=== PATIENT | male | born 1975 | race Caucasian/White ===

== ENCOUNTER 2017-09-26 21:25 | Inpatient (IN) | payer MEDICARE, BC, MEDICAID ==
[~2017-09-26] VITALS: Ht 180.3 cm; Wt 83.0 kg
--- NOTE | 2017-09-26 21:30 | NUR ---
KIM WYMAN AT BEDSIDE FOR EVAL.
[2017-09-26] MEDS ORDERED: LORAZEPAM INJ 2 MG/ML VIAL ONE ×3 (21:32→23:07)
--- NOTE | 2017-09-26 21:38 | NUR ---
SEIZURE PRECAUTIONS IN PLACE
--- NOTE | 2017-09-26 21:40 | NUR ---
KENIA Mireles [facility], FOR POSSIBEL SEIZURE X 1 MIN WITNESSED BY STAFF. ORAL TRAUMA NOTED. ABNORMAL GAG REFLEX NOTED. GCS 9. PT ALTERED AND UNRESPONSIVE. PT NOTED TO BE ACTIVELY SEIZING. SAMPLE DISPLAY PREPARER DEGRASSE BEDSIDE. PT PLACED ON ELECTRIC STOVE INSTALLER AND POX. PT SAFETY IN PLACE.
[2017-09-26 21:56] LABS: BASOPHILS % (AUTO) 0.1 % (0.0-2.0); EOSINOPHILS % (AUTO) 0.2 % (0.0-6.0); HEMATOCRIT 38 % (39-51); HEMOGLOBIN 12.4 g/dL (13.5-17.5); LYMPHOCYTES # (AUTO) 1.3 /CMM (0.8-4.8); LYMPHOCYTES % (AUTO) 6.7 % (20.0-44.0); MEAN CORPUSCULAR HEMOGLOBIN 27 PG (26.0-33.0); MEAN CORPUSCULAR HGB CONC 33 g/dl (31.0-36.0); MEAN CORPUSCULAR VOLUME 83 fL (80-96); MONOCYTES # (AUTO) 0.6 /CMM (0.1-1.30); MONOCYTES % (AUTO) 3.4 % (2.0-12.0); NEUTROPHILS # (AUTO) 16.9 /CMM (1.8-8.9); NEUTROPHILS % (AUTO) 89.6 % (43.0-81.0); PLATELET COUNT (AUTO) 518 /CMM (150-450); RED BLOOD CELL COUNT(AUTO) 4.56 MIL/uL (4.5-6.0); WHITE BLOOD COUNT (AUTO) 18.9 K/uL (4.3-11.0)
[2017-09-26] MEDS ORDERED: LORAZEPAM INJ 2 MG/ML VIAL IVP ONE (22:00)
[2017-09-26] MEDS ORDERED: ETOMIDATE 2 MG/ML VIAL IV ONE ×2 (22:00→23:00)
[2017-09-26] MEDS ORDERED: IV NS 0.9% 1,000 ML BAG IV ONE (22:00)
[2017-09-26] MEDS ORDERED: ROCURONIUM BROMIDE 50 MG/5 ML IV ONE (22:00)
--- NOTE | 2017-09-26 22:00 | NUR ---
MD MCGINNIS BEDSIDE. PER MD, PREPARE FOR INTUBATION
[2017-09-26 22:11] LABS: INR 1.11 (0.87-1.13)
--- NOTE | 2017-09-26 22:13 | NUR ---
CALLED NURSING SUP. FOR ICU BED
[2017-09-26] MEDS ORDERED: PROPOFOL 100 ML ONE (22:14)
[2017-09-26 22:15] LABS: ALANINE AMINOTRANSFERASE 20 U/L (12-78); ALBUMIN 3.2 g/dL (3.4-5.0); ALCOHOL, BLOOD < 3 mg/dL (0-0); ALKALINE PHOSPHATASE 61 U/L (46-116); ASPARTATE AMINOTRANSFERASE 25 U/L (15-37); BILIRUBIN,DIRECT 0.1 mg/dL (0.0-0.2); BILIRUBIN,TOTAL 0.3 mg/dL (0.2-1.0); CALCIUM, SERUM 6.6 mg/dL (8.5-10.1); CARBON DIOXIDE 14 mmol/L (21-32); CREATININE 1.1 mg/dL (0.6-1.3); GLUCOSE 201 mg/dL (74-106); UREA NITROGEN, BLOOD 5 mg/dL (7-18)
[2017-09-26 22:21] LABS: SODIUM SERUM 108 mmol/L (136-145)
--- NOTE | 2017-09-26 22:21 | NUR ---
PT INTUBATED WITH DR MCGINNIS AT BEDSIDE. ETT 7.5 AT 25CM AT LIP LINE. POSITIVE COLOR CHANGE ON CAP. BILATERAL CHEST RISE AND BREATH SOUNDS. PLACED PT ON MECHANICAL VENTILATION WITH THE FOLLOWING SETTINGS AC 18, 500, 100%, +5. VENT PLUGGED INTO RED OUTLET. ALARMS ARE ON AND AUDIBLE. BREAKS LOCKED. PT WAS SX'D SMALL AMOUNT OF BLOOD TINGED SECRETIONS. AMBU BAG AT HEAD OF BED. PT TOLERATING SETTINGS. PENDING X-RAY RESULTS FOR TUBE PLACEMENT AND PENDING ABG. WILL CONTINUE TO MONITOR.
[2017-09-26 22:22] LABS: CHLORIDE 78 mmol/L (98-107); POTASSIUM 2.8 mmol/L (3.5-5.1)
--- NOTE | 2017-09-26 22:22 | NUR ---
SUCCESSFUL INTUBATION AT 2221. MD MCGINNIS [facility]. RN ANGÉLICA, RN REAL, RT [facility]. VSS AFTER INTUBATION. NO COMPLICATION POST INTUBATION. ET 7.5, 25 AT LIPS, VENT SETTINGS AC18,500,100%, PEEP 5.
[2017-09-26] MEDS ORDERED: SENN25TA10 PO (22:27)
[2017-09-26] MEDS ORDERED: QUET400T PO (22:27)
[2017-09-26] MEDS ORDERED: DOXE10CA2 PO (22:27)
[2017-09-26] MEDS ORDERED: MIRT15TA7 PO (22:27)
[2017-09-26] MEDS ORDERED: CLON0.5T4 PO (22:27)
[2017-09-26] MEDS ORDERED: GABA300C PO (22:27)
[2017-09-26] MEDS ORDERED: SENN-167 PO (22:28)
[2017-09-26] MEDS ORDERED: DOCU100C36 PO (22:28)
[2017-09-26] MEDS ORDERED: PROPOFOL 10MG/ML 50ML 50 ML IV PRN (22:30)
[2017-09-26] MEDS ORDERED: LORAZEPAM INJ 2 MG/ML VIAL IV ONE ×2 (22:30→23:30)
[2017-09-26 22:31] VITALS: BP 117/70
[2017-09-26 22:49] LABS: TROPONIN I < 0.017 ng/mL (0.00-0.056)
--- NOTE | 2017-09-26 22:55 | NUR ---
PT TRANSFERRED TO CT. PT UNABLE TO TOLERATE PROCEDURE. PT WAS TRANSFERRED BACK TO ER AND PLACED ON PREVIOUS SETTINGS.
[2017-09-26] MEDS ORDERED: ROCURONIUM BROMIDE 100 MG/10 ML VIAL IV ONE (23:00)
[2017-09-26] MEDS ORDERED: POTASSIUM CHLORIDE 10 MEQ/50 ML PREMIXED IVPB FOR PERIPHERAL LINE IV ONE (23:00)
[2017-09-26] MEDS ORDERED: IV Sodium Chloride 3% 500 ML 500 ML IV ONE (23:11)
[2017-09-26] MEDS ORDERED: POTASSIUM CL. PREMIX PERIPHER. 50 ML ONE (23:36)
[2017-09-26 23:52] LABS: ABG BASE EXCESS -15.2 mmol/L; ABG OXYGEN SATURATION 99.4 % (92.0-98.5); ABG PCO2 58.3 mmHg (35.0-45.0); ABG PH 7.047 (7.350-7.450); ABG PO2 544.1 mmHg (75.0-100.0); AaDO2 110.6 mmHg; COHb 1.1 % (0.5-1.5); MetHb 0.6 % (0.0-1.5); O2Hb 97.7 % (94.0-97.0); PEEP,BG 5 cm H2O; SITE, ABG Right Radial; VT, ABG 500 mL
--- NOTE | 2017-09-26 23:53 | NUR ---
INCREASED RESP RATE TO 22 AND DECREASE FIO2 TO 40% POST ABG RESULTS PER DR MCGINNIS REQUEST. Addendum: 09/27/17 at 0044 by CHRISTINE SHOEMAKER RT Amended: Links added.
[2017-09-26] MEDS ORDERED: SODIUM BICARBONATE SYR 50 MEQ/50 ML DISP.SYRIN ONE (23:55)
[2017-09-27] VITALS (34 sets, daily range): BP systolic 88–119; BP diastolic 47–77
[2017-09-27] MEDS ORDERED: IV Sodium Chloride 3% 500 ML 500 ML IV ONE
[2017-09-27] MEDS ORDERED: LORAZEPAM INJ 20 MG in IV NS 0.9% 90 ML IV PRN ×2
[2017-09-27] MEDS ORDERED: PIPERACILLIN /TAZOBACTAM 4.5 G in IV D5W 50 ML IV ONE ×2
[2017-09-27] MEDS ORDERED: SODIUM BICARBONATE SYR 100 MEQ in IV NS 0.9% 1,000 ML IV PRN ×2
--- NOTE | 2017-09-27 00:02 | NUR ---
1100ML OF GASTRIC CONTENTS SUCTIONED OUT VIA NG TUBE DARK RED/BROWN IN COLLOR. MADE AWARE
--- NOTE | 2017-09-27 00:07 | NUR ---
SPUTUM SAMPLE INDUCTION PERFORMED. MAYKEL WINKLER AWARE.
[2017-09-27] MEDS ORDERED: LORAZEPAM INJ 2 MG/ML VIAL ONE ×3 (00:08→00:17)
--- NOTE | 2017-09-27 00:47 | NUR ---
RT NOTE LATE ENTRY: @ [address] @ 0030 PT TRANSFERRED BACK TO ER AND PLACED BACK ON MECHANICAL VENTILATION WITH PREVIOUS SETTINGS.
[2017-09-27] MEDS ORDERED: SODIUM BICARBONATE SYR 50 MEQ/50 ML DISP.SYRIN ONE (00:58)
[2017-09-27 01:05] LABS: ABG BASE EXCESS -0.6 mmol/L; ABG PCO2 27.7 mmHg (35.0-45.0); ABG PH 7.505 (7.350-7.450); ABG PO2 87.6 mmHg (75.0-100.0); AaDO2 165.7 mmHg; COHb 0.6 % (0.5-1.5); MetHb 0.5 % (0.0-1.5); O2Hb 95.9 % (94.0-97.0); PEEP,BG 5 cm H2O; SITE, ABG Right Radial; VT, ABG 500 mL
[2017-09-27 01:05] LABS: APPEARANCE,URINE CLEAR (CLEAR); BILIRUBIN,URINE NEGATIVE (NEGATIVE); BLOOD, URINE 2+ Ery/uL (NEGATIVE); COLOR,URINE YELLOW (YELLOW); KETONES,URINE TRACE (NEGATIVE); LEUKOCYTE ESTERASE ,URINE NEGATIVE (NEGATIVE); NITRITE, URINE NEGATIVE (NEGATIVE); PH,URINE 5.5 (5.0-8.0); PROTEIN,URINE NEGATIVE (NEGATIVE); UGLUCOSE NEGATIVE (NEGATIVE); UROBILINOGEN,URINE 0.2 EU/dL (0.2)
--- NOTE | 2017-09-27 01:05 | NUR ---
NEW VENT SETTINGS BY RT PER MD MCGINNIS AC20, 500, 40%, PEEP 5
[2017-09-27 01:21] LABS: RBC,URINE 0-2 /HPF (0-2); WBC,URINE 0-2 /HPF (0-3)
[2017-09-27 01:22] LABS: BACTERIA,URINE Few /HPF (None Seen); SQUAMOUS EPITHELIAL CELL,UR Few /HPF (None Seen)
[2017-09-27] MEDS ORDERED: POTASSIUM CL. PREMIX PERIPHER. 50 ML ONE (01:23)
[2017-09-27] MEDS ORDERED: SODIUM BICARBONATE SYR 50 MEQ/50 ML DISP.SYRIN IV ONE ×2 (01:30)
[2017-09-27] MEDS ORDERED: PIPERACILLIN /TAZOBACTAM 3.375 G VIAL IV ONE ×2 (01:31→03:48)
--- NOTE | 2017-09-27 01:33 | NUR ---
LATE ENTRY @ 0110 DECREASED RESP RATE POST ABG RESULTS PER DR MCGINNIS REQUEST. Addendum: 09/27/17 at 0134 by CHRISTINE SHOEMAKER RT Amended: Links added.
--- NOTE | 2017-09-27 02:25 | NUR ---
REPORT GIVEN TO CORD MAKERMAYKEL PALMER FOR MAINE.
[2017-09-27] MEDS ORDERED: POTASSIUM CL. PREMIX PERIPHER. 100 ML ONE (02:37)
--- NOTE | 2017-09-27 02:44 | NUR ---
POTASSIUM CHLORIDE BAG 3/4 STARTED AND INFUSING ON ADMISSION TO ICU
--- NOTE | 2017-09-27 03:05 | NUR ---
WEAPONS OFFICER: ADMITTED S/P ORAL INTUBATED PT. FOR DX OF STATUS EPILEPTICUS. VENT SETTINGS ORDERED AND TOLERATED WELL. SEDATED ON DIPRIVAN STARTED FROM ER AT 40MCG/KG/MIN, WITHDRAWS TO PAIN STIMULI. SR ON NAIL FEEDER. LT. NGT TUBE PATENT AND INTACT, VERIFIED PLACEMENT VIA AUSCULTATION AND X-RAY DONE FROM ER. F/C PATENT AND INTACT DRAINING LARGE AMT. OF CLEAR YELLOWISH URINE TO GRAVITY. LT. AC AND RT. AC IV SITES WT NO S/S OF INFILTRATION AND INFUSING ATIVAN DRIP AT 2MG/HR FROM ER AND DIPRIVAN. BODY ASSESSMENT DONE. HOB AT 45 DEGREES. ASPIRATION, SEIZURE AND SAFETY PRECAUTIONS NOTED AT ALL TIMES. WILL CONTINUE TO MONITOR.
[2017-09-27] MEDS ORDERED: ZOLPIDEM TARTRATE 5 MG TABLET PO PRN (03:30)
[2017-09-27] MEDS ORDERED: ENOXAPARIN SODIUM 40 MG/0.4 ML DISP.SYRIN SQ ONE ×2 (03:30→03:32)
[2017-09-27] MEDS ORDERED: ONDANSETRON HCL/PF 4 MG/2 ML VIAL IVP PRN (03:30)
[2017-09-27] MEDS ORDERED: LEVETIRACETAM (500MG) 500 MG in IV NS 0.9% 100 ML IV SCH (03:30)
--- NOTE | 2017-09-27 03:45 | NUR ---
STANDARDS ENGINEER: NOTIFIED KIM RANGEL THAT PER ER REPORT, PT. HAS NO EPISODE OF SEIZURE FOR PAST 3 HOURS. AUTOMOTIVE UPHOLSTERER WT ORDER TO DC ATIVAN DRIP AND TO GIVE PRN.
[2017-09-27] MEDS: PROPOFOL 100 ML IV PRN ×4 (03:47→21:00)
[2017-09-27] MEDS: IV NS 0.9% 1,000 ML IV PRN ×2 (03:49→10:48)
[2017-09-27] MEDS ORDERED: LEVETIRACETAM (500MG) 500 MG/5 ML VIAL IV ONE (03:57)
[2017-09-27 04:48] LABS: URINE SODIUM, RANDOM 28 mmol/l (40-220)
[2017-09-27 04:58] LABS: OSMOLALITY,URINE 132 mOS/kg (340-1090)
--- NOTE | 2017-09-27 05:00 | NUR ---
BRIMMING MACHINE OPERATOR: INFUSED 4TH BAG OF KCL. DISPOSED REMAINING ATIVAN MIXED BY COAL BRIQUETTE MACHINE OPERATOR AT 80CC WITNESSED BY CRYSTAL CHAVEZ RN.
[2017-09-27] MEDS: PIPERACILLIN /TAZOBACTAM 3.375 G in IV D5W 50 ML IV SCH ×4 (06:30→23:54)
--- NOTE | 2017-09-27 06:50 | NUR ---
GAME ADVISOR: REMAINED SEDATED AT DIPRIVAN 40MCG/KG/MIN. NO SEIZURE EPISODE SINCE ADMITTED TO ICU.
[2017-09-27 07:43] LABS: CALCIUM, SERUM 7.7 mg/dL (8.5-10.1); POTASSIUM 3.1 mmol/L (3.5-5.1)
[2017-09-27] MEDS: GABAPENTIN 300 MG CAPSULE PO SCH ×3 (08:47→17:33)
[2017-09-27] MEDS ORDERED: PHENOBARBITAL SODIUM 1,000 MG in IV NS 0.9% 80 ML IV ONE (09:30)
[2017-09-27] MEDS ORDERED: PHENOBARBITAL SODIUM 1,000 MG in IV NS 0.9% 100 ML IV ONE ×2 (10:30→15:00)
[2017-09-27] MEDS: POTASSIUM CL. PREMIX PERIPHER. 50 ML IV SCH ×4 (10:48→13:47)
--- NOTE | 2017-09-27 12:46 | NUR ---
WOUND CARE CONSULT: PT PRESENTS WITH INTACT SKIN, SOME REDNESS TO KNEES AND ELBOWS (BLANCHABLE) AND FINE RASH TO UPPER TORSO, PRESENT ON ADMISSION. RECOMMENDATIONS MADE FOR SKIN PROTECTION. DISCUSSED WITH NURSING STAFF. DEFER TO MD FOR RASH/REDNESS. WILL SEE PRN. PT ON [place] ISOFLEX LOW AIRLOSS BED. MD IN AGREEMENT WITH PLAN OF CARE. Addendum: 09/27/17 at 1247 by SERGIO HAMILTON WNDNU Amended: Links added.
[2017-09-27] MEDS: IV D5/ 0.9% NACL 1,000 ML IV PRN (13:29)
[2017-09-27 14:02] LABS: CALCIUM, SERUM 8.1 mg/dL (8.5-10.1); CREATININE 1.1 mg/dL (0.6-1.3); POTASSIUM 3.5 mmol/L (3.5-5.1)
--- NOTE | 2017-09-27 14:15 | NUR ---
RESTROOMS OR LOUNGES MAID NOTE 0720: Received patient sedated. With ETT to vent, tolerated settings well. No respiratory distress noted. With left NGT intact, clamped. SR on the monitor. With figueroa cath intact, noted with large amount of clear pale yellow urine drained to BSD. 0900: S/E by Dr. Mcgowan, sister at bedside, discussed re: the POC. Off sedation at this time, and patient noted with episode of seizure, witnessed by me, Dr. Mcgowan and sister, placed back on Diprivan as ordered by MD at bedside. Patient still not able to respond via verbal stimuli, unable to assess cognition at this time due to episode of seizure. Will keep him sedated for now and will start on Phenobarb per MD. 0930: S/E by dr. Waggoner, also spoke with sister at bedside. Will keep sedated and on vent for airway protection at this time. 1100: S/E by Dr. Izquierdo, family at bedside, all questions and concerns were answered. 1400: No significant changes noted at this time. Kept on sedation. No episode of seizure at this time.
[2017-09-27 15:19] LABS: OSMOLALITY,URINE 45 mOS/kg (340-1090)
[2017-09-27 15:23] LABS: URINE SODIUM, RANDOM 7 mmol/l (40-220)
--- NOTE | 2017-09-27 17:36 | NUR ---
Intubated pt received on mechanical vent. Pt 7.5 ETT secured at 25cm at the lip. Pt RR titrated to 14. Vent is plugged into a red outlet, alarms are set and audible, and BVM is at bedside. Addendum: 09/27/17 at 1738 by ALIREZA MCKEON RT Amended: Links added.
--- NOTE | 2017-09-27 18:52 | NUR ---
VAT HOUSE LABORER NOTE No significant changes noted, No episode of seizure noted. Remained on Diprivan @ 30mcg.
--- NOTE | 2017-09-27 19:00 | NUR ---
RN NOTE RECEIVED PT IN NO ACUTE DISTRESS IN BED. PT IS SEDATED WITH PROROFOL. PT IS ON MECHANICAL VENT VIA ET TUBE THAT IS 7.5/ 25@ THE LIP. PT HAS VENT SETTINGS AT AC 14, TV 500, FIO2 40, PEEP +5. PT TOLERATING VENT SETTING WELL WITH O2 SAT @ 100%. PT HAS LEFT NARE NG TUBE THAT IS CLEAN DRY INTACT AND CLAMPED. PT IS ON TELE WITH SR IN THE 70s. PT HAS F/C THAT IS CLEAN DRY INTACT AND PATENT WITH YELLOW URINE DRAINING. PT HAS LAC 18G WITH PROPOFOL @ 30MCG/MIN. ALSO R AC 18G WITH D5NS @ 100ML/HR. BED IN LOW LOCK POSITION WITH RIALS UP X2. CALL LIGHT WITHIN REACH AND ALL SAFETY MEASURES ENSURED AND CARRIED OUT. WILL CONTINUE TO MONITOR PT.
[2017-09-27 21:06] LABS: CALCIUM, SERUM 7.7 mg/dL (8.5-10.1); CREATININE 1.2 mg/dL (0.6-1.3); POTASSIUM 3.6 mmol/L (3.5-5.1)
[2017-09-27] MEDS: PHENOBARBITAL SODIUM 130 MG/ML VIAL IV SCH (21:26)
[2017-09-27] MEDS: ENOXAPARIN SODIUM 40 MG/0.4 ML DISP.SYRIN SQ SCH (21:34)
[2017-09-28] VITALS (35 sets, daily range): BP systolic 93–127; BP diastolic 51–70
[2017-09-28] MEDS: PROPOFOL 100 ML IV PRN ×2 (01:16→08:09)
[2017-09-28] MEDS: IV D5/ 0.9% NACL 1,000 ML IV PRN (02:03)
--- NOTE | 2017-09-28 03:28 | NUR ---
RT Pt orally intubated on [facility] vent ordered settings. no resp distress noted. ETT secure and patent. sx prn. no changes or weaning during the shift. Addendum: 09/28/17 at 0329 by JARED BALDERRAMA RT Amended: Links added.
[2017-09-28] MEDS: ACETAMINOPHEN 325 MG TABLET PO PRN ×2 (03:31→12:32)
--- NOTE | 2017-09-28 03:31 | NUR ---
RN NOTE PT TEMP IS 101.6 VIA MOUTH. GAVE TYLENOL 650MG VIA NG TUBE AND COOLING MEASURES CARRIED OUT. WILL CONTINUE TO MONITOR.
--- NOTE | 2017-09-28 04:30 | NUR ---
RN NOTE TEMP IS NOW 99.4 BY MOUTH. WILL CONTINUE TO MONITOR.
[2017-09-28 05:40] LABS: BASOPHILS % (AUTO) 0.1 % (0.0-2.0); HEMATOCRIT 37 % (39-51); HEMOGLOBIN 12.2 g/dL (13.5-17.5); LYMPHOCYTES # (AUTO) 1.4 /CMM (0.8-4.8); LYMPHOCYTES % (AUTO) 14.1 % (20.0-44.0); MEAN CORPUSCULAR HEMOGLOBIN 28 PG (26.0-33.0); MEAN CORPUSCULAR HGB CONC 33 g/dl (31.0-36.0); MEAN CORPUSCULAR VOLUME 84 fL (80-96); MONOCYTES # (AUTO) 0.9 /CMM (0.1-1.30); MONOCYTES % (AUTO) 9.5 % (2.0-12.0); NEUTROPHILS # (AUTO) 7.5 /CMM (1.8-8.9); NEUTROPHILS % (AUTO) 76.3 % (43.0-81.0); PLATELET COUNT (AUTO) 433 /CMM (150-450); RDW COEFFICIENT OF VARIATION 13.3 (11.5-15.0); RED BLOOD CELL COUNT(AUTO) 4.36 MIL/uL (4.5-6.0); WHITE BLOOD COUNT (AUTO) 9.8 K/uL (4.3-11.0)
[2017-09-28] MEDS: PIPERACILLIN /TAZOBACTAM 3.375 G in IV D5W 50 ML IV SCH ×3 (05:52→17:32)
[2017-09-28 06:19] LABS: CALCIUM, SERUM 7.7 mg/dL (8.5-10.1); CREATININE 1.1 mg/dL (0.6-1.3); MAGNESIUM 2.1 mg/dL (1.8-2.4); PHOSPHORUS 3.1 mg/dL (2.5-4.9); POTASSIUM 3.3 mmol/L (3.5-5.1)
[2017-09-28 06:24] LABS: THYROID STIMULATING HORMONE 0.643 uIU/mL (0.358-3.74); URIC ACID 5.3 mg/dL (2.6-7.2)
--- NOTE | 2017-09-28 06:33 | NUR ---
RN CLOSING NOTE PT REMAINS IN NO ACUTE DISTRESS IN BED. PT TOLERATING VENT SETTING WELL. PT CONTINUES TO BE SEDATED ON PROPOFOL @ 30MCG/MIN. ALL NEEDS MET, ALL ORDERS CARRIED OUT. WILL ENDORSE CARE TO AM RN FOR CONTINUITY OF CARE.
[2017-09-28] MEDS: GABAPENTIN 300 MG CAPSULE PO SCH ×3 (08:20→17:32)
[2017-09-28] MEDS: PHENOBARBITAL SODIUM 130 MG/ML VIAL IV SCH ×2 (08:20→21:13)
[2017-09-28] MEDS ORDERED: LORAZEPAM INJ 2 MG/ML VIAL IV ONE (09:00)
[2017-09-28 09:34] LABS: ABG BASE EXCESS 1.2 mmol/L; ABG OXYGEN SATURATION 98.1 % (92.0-98.5); ABG PCO2 39.6 mmHg (35.0-45.0); ABG PH 7.427 (7.350-7.450); ABG PO2 133.6 mmHg (75.0-100.0); AaDO2 106.1 mmHg; COHb 0.3 % (0.5-1.5); MetHb 0.7 % (0.0-1.5); O2Hb 97.1 % (94.0-97.0); PEEP,BG 5 cm H2O; SITE, ABG Right Radial; VT, ABG 500 mL
--- NOTE | 2017-09-28 09:53 | NUR ---
VENT CHANGES MADE BELLOW: DECREASED FIO2 FROM 40% TO 30 % DUE TO PAO2 133 AND SPO2 100% Addendum: 09/28/17 at 0953 by SUJEY VALENCIA RT Amended: Links added.
--- NOTE | 2017-09-28 10:07 | NUR ---
CLUB DIRECTOR NOTE 0720: Received patient sedated. With ETT to vent, tolerated, no respiratory distress noted. With left NGT intact, clamped. With CUSTOMER SUPPORT COORDINATOR restraints on for safety. Assessed skin. With PIVs intact. On Diprivan @ 30mcg, IVF D5NS @ 100. Arredondo cath intact, noted with clear alison colored urine drained to BSD. 0820: S/E by Roslyn Cortes, parents at bedside. Discussed re: the POC. Made MD aware with episode again of seizure x1 on 30mcg. MD ordered to titrate Diprivan off( less 10mcg q1hr) and give Ativan x1 now and call her if with episodes of seizure. 0900: S/E bY Dr. Waggoner, no new order at this time. 1000: Turned patient and noted with shaking x20 sec, stopped when placed his head back elevated.
[2017-09-28] MEDS: POTASSIUM CL. PREMIX PERIPHER. 50 ML IV SCH ×2 (10:32→11:42)
--- NOTE | 2017-09-28 13:23 | NUR ---
EQUIPMENT PLANNER NOTE S/E by Dr. Izquierdo, with order to change IVF with KCl 40mEq. Family at bedside. Also S/E by Lidia ALVAREZ, made aware for fever 101.2, with order of pancultures. Given Tylenol and cooling measures. Patient tries to open eyes for deep pain.
[2017-09-28] MEDS: Potassium Chloride 40 MEQ in IV D5/ 0.9% NACL 1,000 ML IV PRN (14:34)
--- NOTE | 2017-09-28 18:33 | NUR ---
CAN LINE EXAMINER NOTE No any significant changes noted. Noted with grimace when turning/repositioning. No episode of seizure noted. Mother at bedside. Kept clean, warm and dry. Needs anticipated.
[2017-09-28 19:31] LABS: URINE SODIUM, RANDOM 88 mmol/l (40-220)
--- NOTE | 2017-09-28 20:00 | NUR ---
Received patient responsive to tactile stimuli and painful stimuli by grimacing.Bilateral soft wrist restraints on for safety.Orally intubated to mechanical vent on AC mode with prescribed settings.No respiratory distress noted.SR per monitor no ectopies noted.Left nares NGT in place.Placement verified patent and clamped.Abdomen soft BS active.FC draining clear alison urine. Turned and repositioned offloading pressure points.Continue monitoring.
[2017-09-28 20:15] LABS: OSMOLALITY,URINE 647 mOS/kg (340-1090)
[2017-09-28] MEDS: ENOXAPARIN SODIUM 40 MG/0.4 ML DISP.SYRIN SQ SCH (21:14)
[2017-09-29] VITALS (35 sets, daily range): BP systolic 100–120; BP diastolic 62–77
[2017-09-29] MEDS: PIPERACILLIN /TAZOBACTAM 3.375 G in IV D5W 50 ML IV SCH ×4 (00:09→17:23)
[2017-09-29] MEDS: ACETAMINOPHEN 325 MG TABLET PO PRN (00:12)
--- NOTE | 2017-09-29 00:30 | NUR ---
Patient febrile 102.3.Bed bath rendered done.Complete linens changed.Turned and repositioned.Will continuous cooling measures.Tylenol administered.Zosyn infusing.
--- NOTE | 2017-09-29 00:35 | NUR ---
Patient tries to sit up and moving his legs during bath.Safety precaution maintained.
[2017-09-29] MEDS: Potassium Chloride 40 MEQ in IV D5/ 0.9% NACL 1,000 ML IV PRN ×2 (02:00→13:29)
[2017-09-29 05:03] LABS: BASOPHILS % (AUTO) 0.3 % (0.0-2.0); HEMATOCRIT 37 % (39-51); HEMOGLOBIN 12.1 g/dL (13.5-17.5); LYMPHOCYTES # (AUTO) 1.6 /CMM (0.8-4.8); LYMPHOCYTES % (AUTO) 17.5 % (20.0-44.0); MEAN CORPUSCULAR HEMOGLOBIN 27 PG (26.0-33.0); MEAN CORPUSCULAR HGB CONC 32 g/dl (31.0-36.0); MEAN CORPUSCULAR VOLUME 84 fL (80-96); MONOCYTES # (AUTO) 1.2 /CMM (0.1-1.30); MONOCYTES % (AUTO) 12.7 % (2.0-12.0); NEUTROPHILS # (AUTO) 6.4 /CMM (1.8-8.9); NEUTROPHILS % (AUTO) 69.5 % (43.0-81.0); PLATELET COUNT (AUTO) 407 /CMM (150-450); RDW COEFFICIENT OF VARIATION 13.7 (11.5-15.0); RED BLOOD CELL COUNT(AUTO) 4.44 MIL/uL (4.5-6.0); WHITE BLOOD COUNT (AUTO) 9.1 K/uL (4.3-11.0)
[2017-09-29 05:34] LABS: ALBUMIN 2.5 g/dL (3.4-5.0); BILIRUBIN,TOTAL 0.4 mg/dL (0.2-1.0); CALCIUM, SERUM 7.6 mg/dL (8.5-10.1); CREATININE 0.9 mg/dL (0.6-1.3); MAGNESIUM 1.8 mg/dL (1.8-2.4); PHOSPHORUS 3.4 mg/dL (2.5-4.9); POTASSIUM 3.5 mmol/L (3.5-5.1); TOTAL PROTEIN, SERUM 5.6 g/dL (6.4-8.2)
--- NOTE | 2017-09-29 06:00 | NUR ---
Patient resting.Latest temp 99.4.IVF infusing well.No seizure activity noted during the shift.Turned and repositioned. All needs anticipated and met.
--- NOTE | 2017-09-29 06:20 | NUR ---
Tammi from [facility] called and enquire about patient regarding transfer to their hospital. Made her aware that I don't see any order so far for transfer.To just call back today for further orders.
[2017-09-29] MEDS: LORAZEPAM INJ 2 MG/ML VIAL IV PRN ×2 (07:43→22:15)
[2017-09-29] MEDS: PHENOBARBITAL SODIUM 130 MG/ML VIAL IV SCH ×2 (08:17→21:11)
[2017-09-29] MEDS: GABAPENTIN 300 MG CAPSULE PO SCH ×3 (08:17→17:23)
--- NOTE | 2017-09-29 09:25 | NUR ---
GAS OPERATOR NOTE 0720: Received [patient lethargic, does not follow commands, noted with agitation AEB moving extremities and trying to reach ETT, Ativan 1mg given, became calm. SHIP LINER restraints in place for safety. Left NGT intact, clamped. With Arredondo cath intact, noted with alison colored urine drained to BSD. FITO midline intact, 2 PIVs intact. On D5NS 40KCl infusing as ordered. SR on the monitor. 0750: S/E by Dr. Mcgowan, made aware for the agitation, Ativan just given, MD agreed. No seizure noted over night. 0900: SisterLulu at bedside, given update re: the patient. All questions and concerns were answered. 0920: S/E by Dr. Waggoner, no new order at this time. Made aware patient has more secretions and thicker than yesterday and with episode of fever 102.3 last night.
--- NOTE | 2017-09-29 14:02 | NUR ---
RT NOTE: PATIENT RECEIVED ORALLY INTUBATED WITH 7.5 ETT SECURED AT 25 CM MID LIP LINE ON PB 840 VENT. ETT MOVED FROM RIGHT TO LEFT SIDE OF HIS MOUTH VIA ANCHOR FAST. ALARMS VERIFIED AND AUDIBLE. SUCTIONED AND LAVAGED THICK REYNOLDS SECRETIONS. VENT PLUGGED INTO RED OUTLET. AMBU BAG AT [facility].
[2017-09-29] MEDS ORDERED: BISACODYL (5 MG) 5 MG TABLET.DR PO PRN (17:30)
--- NOTE | 2017-09-29 17:39 | NUR ---
BODY DESIGN CHECKER NOTE S/E by Dr. Montanez, family at bedside, discussed re: the POC. MD said may start on feeding. S/E KIM Lee, spoke with the family, discussed re: the POC. Sister and parents at bedside.
[2017-09-29] MEDS: JEVITY 1.2 CAL 1,000 ML BOTTLE GT PRN (18:52)
--- NOTE | 2017-09-29 19:30 | NUR ---
Received patient lethargic open eyes to tactile stimuli but not following commands.Moves all extremities.CHRISTIAN SCIENCE HEALER restraints in place for safety.Maintained on same prescribed vent settings well tolerated.Secretions suctioned.SR per monitor no ectopies noted.Patient tube feeding in progress via left NGT.HOB elevated.NGT placement verified patent no residual noted.FC to gravity with clear alison urine.Turned and repositioned.No acute distress noted.
--- NOTE | 2017-09-29 20:19 | NUR ---
PT ON VENT A/C MODE. PT DEAN VENT SETTINGS WELL WITH NO RESPIRATORY DISTRESS NOTED ATT. PT IS INTUBATED WITH A 7.5 ET TUBE SECURED 25CM AT THE LIP. BREATH SOUNDS DIMINISHED/COURSE SX PT PRN RETURNING MODERATE PALE YELLOW SECRETIONS. VENT ALARMS CHECKED FOUND TO BE FUNCTIONAL, AUDIBLE, AND WITHIN LIMITS. VENT PLUGGED INTO RED OUTLET. BVM AT BEDSIDE.
[2017-09-29] MEDS: ENOXAPARIN SODIUM 40 MG/0.4 ML DISP.SYRIN SQ SCH (21:12)
--- NOTE | 2017-09-29 22:20 | NUR ---
Patient had BM.Perineal care and bed bath rendered.Complete linens changed.Patient get agitated sitting up in bed and kicking tried to pull out ET tube.Bilateral soft wrist restraints reapplied and Ativan given for sedation.Safety measures maintained.
[2017-09-30] VITALS (32 sets, daily range): BP systolic 73–139; BP diastolic 55–81
[2017-09-30] MEDS: Potassium Chloride 40 MEQ in IV D5/ 0.9% NACL 1,000 ML IV PRN ×3 (00:45→22:56)
[2017-09-30] MEDS: LORAZEPAM INJ 2 MG/ML VIAL IV PRN ×2 (04:05→08:26)
[2017-09-30 05:05] LABS: BASOPHILS % (AUTO) 0.4 % (0.0-2.0); EOSINOPHILS % (AUTO) 0.5 % (0.0-6.0); HEMATOCRIT 41 % (39-51); HEMOGLOBIN 13.6 g/dL (13.5-17.5); LYMPHOCYTES # (AUTO) 1.6 /CMM (0.8-4.8); LYMPHOCYTES % (AUTO) 18.6 % (20.0-44.0); MEAN CORPUSCULAR HEMOGLOBIN 28 PG (26.0-33.0); MEAN CORPUSCULAR HGB CONC 33 g/dl (31.0-36.0); MEAN CORPUSCULAR VOLUME 84 fL (80-96); MONOCYTES # (AUTO) 1.3 /CMM (0.1-1.30); MONOCYTES % (AUTO) 15.1 % (2.0-12.0); NEUTROPHILS # (AUTO) 5.7 /CMM (1.8-8.9); NEUTROPHILS % (AUTO) 65.4 % (43.0-81.0); PLATELET COUNT (AUTO) 378 /CMM (150-450); RDW COEFFICIENT OF VARIATION 13.3 (11.5-15.0); RED BLOOD CELL COUNT(AUTO) 4.94 MIL/uL (4.5-6.0); WHITE BLOOD COUNT (AUTO) 8.7 K/uL (4.3-11.0)
[2017-09-30 05:26] LABS: ALBUMIN 2.6 g/dL (3.4-5.0); BILIRUBIN,TOTAL 0.2 mg/dL (0.2-1.0); CALCIUM, SERUM 8.2 mg/dL (8.5-10.1); CREATININE 0.8 mg/dL (0.6-1.3); MAGNESIUM 1.6 mg/dL (1.8-2.4); PHOSPHORUS 3.5 mg/dL (2.5-4.9); POTASSIUM 3.4 mmol/L (3.5-5.1); TOTAL PROTEIN, SERUM 5.8 g/dL (6.4-8.2)
[2017-09-30] MEDS: PIPERACILLIN /TAZOBACTAM 3.375 G in IV D5W 50 ML IV SCH ×5 (05:35→17:12)
[2017-09-30 06:11] LABS: NEUTROPHILS % (MANUAL) 69 (42-76)
[2017-09-30 06:12] LABS: BAND % (MANUAL) 3 % (0.0-5.0); LYMPHOCYTES % (MANUAL) 15 % (16-48); MONOCYTES % (MANUAL) 13 % (0-11.0)
--- NOTE | 2017-09-30 06:45 | NUR ---
Patient resting received 2 doses of Ativan for agitation.More awake but not following commands. Tube feeding well tolerated.BM x 2 loose brownish.Kept clean and dry.Turned and repositioned. No seizure activity noted.All needs anticipated and met.
[2017-09-30] MEDS ORDERED: POTASSIUM CHLORIDE 20 MEQ TAB.PRT.SR PO ONE (08:00)
[2017-09-30] MEDS ORDERED: POTASSIUM CHLORIDE 20 MEQ POWDER PACKET GT ONE (08:00)
[2017-09-30] MEDS ORDERED: MAGNESIUM OXIDE 400 MG TABLET GT ONE (08:00)
[2017-09-30] MEDS: GABAPENTIN 300 MG CAPSULE PO SCH ×3 (08:26→17:12)
[2017-09-30] MEDS: PHENOBARBITAL SODIUM 130 MG/ML VIAL IV SCH ×2 (08:26→21:01)
--- NOTE | 2017-09-30 10:22 | NUR ---
SURGERY TEACHER NOTE 0720: Received patient lethargic. With ETT to vent, tolerated settings well. No respiratory distress noted. With left NGT intact, feeding tolerated well, on 50mL/hr noted with 10mL residuals, incremented to 60mL/hr, goal. Will continue to monitor. Kept HOB elevated. With FITO midline intact, on IVF infusing as ordered. 0820: Noted patient with agitation and trying to reach ETT, Ativan 1mg given as ordered. DETENTION ATTENDANT restraints on for safety. 0900: S/E by Dr. Waggoner, noted with eyes opening, able to squeeze but not all the time. SisterLulu at bedside. 0945: S/E by Jesus BUZZSAW OPERATOR, with orders for Mg and K replacements. 1010: S/E by Dr. Waggoner again but still lethargic, with order to inform him if patient is more awake. Sister at bedside aware for the POC.
[2017-09-30] MEDS: Magnesium 1GM/D5W 100ML PREMIX 100 ML IV SCH ×2 (10:29→11:45)
--- NOTE | 2017-09-30 11:43 | NUR ---
RT NOTE: DAILY ABG CANCELLED PER
--- NOTE | 2017-09-30 16:10 | NUR ---
RT NOTE: LATE ENTRY-PATIENT SELF EXTUBATED. PLACED ON OXYGEN 2 LPM VIA NASAL CANULA WITH NO DISTRESS NOTED. WILL CONTINUE TO MONITOR. AMBU BAG AT [facility].
--- NOTE | 2017-09-30 16:46 | NUR ---
PATTERNMAKER METAL NOTE 1610: S/E by Dr. Montanez, family at bedside. turned patient but patient become agitated and was able to pull out ETT. Placed on 2LPM of O2 via NC, sat 96-100%. Able to cough moderate amount of sputum, no stridor, able to verbalize words(delayed, but understandable), Kept HOB elevated. Informed family. Informed Dr. Waggoner, no new order at this time. Informed Lidia HOUSEKEEPING DIRECTOR, to keep an eye on the O2 sat and for respiratory distress.
--- NOTE | 2017-09-30 18:25 | NUR ---
FABRICATION MIG WELDER NOTE No any significant changes noted, remained on 2LPM of O2 via NC, 97% O2 sat, 19 RR. SR 90's. BP stable. Kept clean, warm and dry. Needs attended. Kept call light at reach. Able to cough, able to communicate well now, more awake. Kept HOB elevated. No S/S aspiration noted at this time.
--- NOTE | 2017-09-30 18:30 | NUR ---
DIRECTOR OF CAREER SERVICES FAMILY NOW READY FOR COMFORT CARE TO START. RECEIVED ORDER FOR COMFORT CARE WITH MORPHINE DRIP FROM PONCHO FLORES DNP. AWAITING MORPHINE DRIP AVAILABILITY. Addendum: 09/30/17 at 1938 by KEVIN WONG RN NOTE RECORDED ON WRONG PATIENT. IGNORE ABOVE ENTRY.
--- NOTE | 2017-09-30 19:30 | NUR ---
Received patient drowsy able to verbalized name otherwise confused and disoriented.Reoriented to place and time.STUCCO WORKER restraints in place for safety.O2 2L in progress saturating 98%.HOB elevated with NGT feeding infusing.Placement verified patent residual 5 ml.No acute distress noted.Turned and repositioned.
[2017-09-30] MEDS: ENOXAPARIN SODIUM 40 MG/0.4 ML DISP.SYRIN SQ SCH (21:01)
--- NOTE | 2017-09-30 22:00 | NUR ---
Patient had diarrhea.Kept clean and dry.Stool specimen collected for C-diff with signed form and brought to lab.C diff isolation precaution initiated.
[2017-10-01] VITALS (25 sets, daily range): BP systolic 90–132; BP diastolic 50–82
[2017-10-01] MEDS: LORAZEPAM INJ 2 MG/ML VIAL IV PRN ×2 (00:40→06:24)
--- NOTE | 2017-10-01 00:40 | NUR ---
Patient very agitated and verbally abusive.PRN Ativan administered.Continue to monitor.
[2017-10-01 05:15] LABS: BASOPHILS % (AUTO) 0.3 % (0.0-2.0); EOSINOPHILS % (AUTO) 0.4 % (0.0-6.0); HEMATOCRIT 42 % (39-51); HEMOGLOBIN 13.7 g/dL (13.5-17.5); LYMPHOCYTES # (AUTO) 1.6 /CMM (0.8-4.8); LYMPHOCYTES % (AUTO) 12.8 % (20.0-44.0); MEAN CORPUSCULAR HEMOGLOBIN 28 PG (26.0-33.0); MEAN CORPUSCULAR HGB CONC 33 g/dl (31.0-36.0); MEAN CORPUSCULAR VOLUME 84 fL (80-96); MONOCYTES # (AUTO) 1.2 /CMM (0.1-1.30); MONOCYTES % (AUTO) 9.9 % (2.0-12.0); NEUTROPHILS # (AUTO) 9.6 /CMM (1.8-8.9); NEUTROPHILS % (AUTO) 76.6 % (43.0-81.0); PLATELET COUNT (AUTO) 411 /CMM (150-450); RDW COEFFICIENT OF VARIATION 13.6 (11.5-15.0); RED BLOOD CELL COUNT(AUTO) 4.96 MIL/uL (4.5-6.0); WHITE BLOOD COUNT (AUTO) 12.5 K/uL (4.3-11.0)
[2017-10-01] MEDS: PIPERACILLIN /TAZOBACTAM 3.375 G in IV D5W 50 ML IV SCH ×5 (05:30→17:38)
[2017-10-01 05:49] LABS: CALCIUM, SERUM 8.7 mg/dL (8.5-10.1); CREATININE 0.8 mg/dL (0.6-1.3); MAGNESIUM 1.9 mg/dL (1.8-2.4); PHOSPHORUS 4.1 mg/dL (2.5-4.9); POTASSIUM 3.7 mmol/L (3.5-5.1)
[2017-10-01] MEDS: JEVITY 1.2 CAL 1,000 ML BOTTLE GT PRN (06:00)
--- NOTE | 2017-10-01 06:35 | NUR ---
Patient resting.vs stable.No significant changes noted.Tolerating feeding.All needs met. Call light within easy reach.Turned and repositioned.No seizure activity noted.
--- NOTE | 2017-10-01 07:00 | NUR ---
RECEIVED PATIENT. NO S/S RESPIRATORY COMPLICATIONS, NO SOB, DIFFICULTY BREATHING AND TOLERATING LOW FLOW NC. PATIENT DENIES PAIN. ABLE TO COMMUNICATE HOWEVER VERY LETHARGIC STILL AND SLOW TO RESPOND. ABLE TO STATE NAME, THAT HE IS IN A HOSPITAL AND WHY HE IS HERE. MYERS CATH IN PLACE DRAINING TO GRAVITY. IV SITE CLEAN DRY INTACT AND IVF RUNNING ORDERED. PATIENT NG TUBE IN PLACE TUBE FEEDING RUNNING ORDERED WITH MINIMAL RESIDUAL. C DIFF SAMPLE TAKEN BY NIGHT RN AND PENDING RESULTS. SWALLOW EVAL PENDING TODAY. MAX TEMP 100.1 AT NIGHT; WILL MONITOR. PLACED FAN IN ROOM AND BLANKETS REMOVED.
[2017-10-01] MEDS: ACETAMINOPHEN 325 MG TABLET PO PRN (08:07)
[2017-10-01] MEDS: PHENOBARBITAL SODIUM 130 MG/ML VIAL IV SCH ×2 (08:07→20:37)
[2017-10-01] MEDS: GABAPENTIN 300 MG CAPSULE PO SCH ×3 (08:07→17:26)
--- NOTE | 2017-10-01 08:45 | NUR ---
ST AT BEDSIDE FOR SWALLOW EVAL
--- NOTE | 2017-10-01 09:29 | NUR ---
PATIENT REFUSING SWALLOW EVAL AT THIS TIME STATING HE WANTS TO REST. KIM TYLER AWARE OF PATIENT SPIKE IN TEMP. PATIENT STATES HE IS HEARING VOICES AGAIN AND THEY ARE TALKING TO HIM. TELLS ME HE WAS SUPPOSED TO AT HOME (SAYS VOICES TOLD HIM TO KILL HIMSELF) PATIENT. NOTIFIED KIM TYLER AND TRAE CHAPARRO OKAY TO EVAL WITH REHABILITATION NURSE PSYCHIATRIST
--- NOTE | 2017-10-01 09:36 | NUR ---
SPOKE WITH DR WHEAT TO NOTIFY OF CONSULT. NOTIFIED PER SHANKAR THEY ARE WORRIED PREVIOUS MEDICATIONS FOR SCHITZO. ARE WHAT HAD CAUSED SEIZURES/SEIZURE LIKE ACTIVITY. MD AWARE OF CONSULT AND WILL SEE
[2017-10-01] MEDS: Potassium Chloride 40 MEQ in IV D5/ 0.9% NACL 1,000 ML IV PRN ×2 (09:40→20:37)
--- NOTE | 2017-10-01 09:50 | NUR ---
DR WHEAT AT BEDSIDE FOR EVAL. PATIENT AWAKE AND ALERT HOWEVER REFUSING TO RESPOND TO MD. ONCE MD LEFT PATIENT OPENED EYES AND STATED HE WAS MAD THAT HE WAS WOKEN UP. CLEANED PATIENT. HINA CARE AND CATHETER CARE COMPLETED. DENIES PAIN, NO SOB, ALL NEEDS MET.
--- NOTE | 2017-10-01 10:12 | NUR ---
NOTIFIED KIM HONG OF PATIENT TEMP 100.1 MAX. TYLENOL GIVEN AND NOW 99.5 ORAL. NO NEW ORDERS AT THIS TIME.
--- NOTE | 2017-10-01 10:14 | NUR ---
PER DR WHEAT PATIENT HOME MEDICATIONS OF SEROQUEL AND CLONIPINE WOULD NOT CAUSE SEIZURES. PER MD INITIATING LOW DOSE SEROQUEL AT THIS TIME AND WILL RE-EVALUATE TOMORROW.
--- NOTE | 2017-10-01 10:30 | NUR ---
BANK ACCOUNTANT HONG AT BEDSIDE. UPDATED ON PATIENT CONDITION, LABS, VS. PER JUDEEN ONLY IF PATIENT TEMP REACHES 100.3 PLEASE OBTAIN DIAZ CULTURES. ORDER ADDED PER BANK ACCOUNTANT.
--- NOTE | 2017-10-01 15:02 | NUR ---
Social service consult requested by Dr. Lee for drug abuse, previous rehab admission. Pt. is a 42 year old male who was admitted to [facility] for status epilepticus. Pt. was intubated during admission and self-extubated yesterday evening. Pt. has a history of seizure disorder, ileus, depression, schizophrenia, polysubstance drug abuse. Pt. currently resides at [facility] [address]. According to KIM Lee notes, pt. was recently discharged from [facility]. BENITEZ met with pt. and his parents bedside. Pt. was asleep. SW spoke to pt's mother who informed SW that pt. was at [facility] for four days only. Prior to there he was residing at home. Pt. has been in and out of rehabilitation programs. When BENITEZ inquired with pt's mother what is pt's drug of choice. The mother responded stating he does not use drug and would not state pt's drug of choice. Pt's mother stated they would like to transfer the pt. to [facility] [place] BENITEZ escorted pt's mother to speak with counter caser Corin regarding the transfer to [facility]. BENITEZ to attempt to speak with the pt. tomorrow.
--- NOTE | 2017-10-01 17:05 | NUR ---
PATIENT PULLED OUT BG TUBE. NURSING SWALLOW EVAL COMPLETED. TOLERATING ICE CHIPS AND APPLE SAUCE NO COMPLICATIONS. NOTIFIED NAYELI AND NANDA TO ORDER ICE CHIPS AND MEDICATIONS WITH APPLE SAUCE AND CONTINUE WITH ST SWALLOW EVAL IN MORNING Addendum: 10/01/17 at 1833 by GIFTY MORENO RN PULLED OUT NG TUBE*
[2017-10-01] MEDS: QUETIAPINE FUMARATE 25 MG TABLET GT SCH (17:26)
--- NOTE | 2017-10-01 18:33 | NUR ---
ALL DUE MEDS GIVEN AND ALL NEEDS MET. PATIENT TOLERATING PUREED DIET NO S/S ASPIRATION. RESTRAINTS STILL IN USE PATIENT CONTINUES TO TRY TO PULL AT MYERS CATH, FLAILS ARMS AND LEGS AND PULLING AT IV. MOTHER AND DAD AT BEDSIDE. IVF RUNNING ORDERED. SAFETY, ASPIRATION, AND SKIN PRECAUTIONS IN PLACE. AFTER EACH REPOSITIONING PATIENT CONTINUES TO MOVE AND REMOVE PILLOWS AND STAY SUPINE. PATIENT CONTINUES TO COMPLAIN OF HEARING VOICES AND THAT HE WANTS TO AND "SHOULD BE IN A COMA OR " MD WHEAT AWARE. TOLERATING NC 1LPM FOR COMFORT. WILL ENDORSE CARE TO RN FOR MAINE.
--- NOTE | 2017-10-01 19:30 | NUR ---
RN INITIAL NOTES RECEIVED PATIENT ASLEEP IN BED, DROWSY, BUT AROUSABLE TO NAME AND TOUCH. PT IS A/O X2. ON 2L NASAL CANNULA. SR ON THE MONITOR, HR 80'S. MYERS CATH IN PLACE. RIGHT UPPER ARM MIDLINE WITH D5NS+40MEQKCL @ 100MLS/HR, FLUSHED AND PATENT, NO S/S OF INFILTRATION/INFECTION, DRESSING CDI. BED LOW AND LOCKED, SIDERAILS UP, BED ALARM ON, BILATERAL SOFT WRIST RESTRAINTS IN PLACE FOR SAFETY. WILL MONITOR
[2017-10-01] MEDS: ENOXAPARIN SODIUM 40 MG/0.4 ML DISP.SYRIN SQ SCH (20:36)
[2017-10-01] MEDS ORDERED: QUETIAPINE FUMARATE 100 MG TABLET GT SCH (22:00)
[2017-10-02] VITALS (21 sets, daily range): BP systolic 92–132; BP diastolic 48–87
[2017-10-02] MEDS: PIPERACILLIN /TAZOBACTAM 3.375 G in IV D5W 50 ML IV SCH (00:26)
[2017-10-02 04:40] LABS: BASOPHILS # (AUTO) 0.1 /CMM (0.0-0.2); BASOPHILS % (AUTO) 0.5 % (0.0-2.0); EOSINOPHILS % (AUTO) 2.6 % (0.0-6.0); HEMATOCRIT 42 % (39-51); HEMOGLOBIN 13.5 g/dL (13.5-17.5); LYMPHOCYTES # (AUTO) 2.3 /CMM (0.8-4.8); LYMPHOCYTES % (AUTO) 23.5 % (20.0-44.0); MEAN CORPUSCULAR HEMOGLOBIN 28 PG (26.0-33.0); MEAN CORPUSCULAR HGB CONC 32 g/dl (31.0-36.0); MEAN CORPUSCULAR VOLUME 85 fL (80-96); MONOCYTES # (AUTO) 1.1 /CMM (0.1-1.30); MONOCYTES % (AUTO) 11.6 % (2.0-12.0); NEUTROPHILS % (AUTO) 61.8 % (43.0-81.0); PLATELET COUNT (AUTO) 407 /CMM (150-450); RDW COEFFICIENT OF VARIATION 13.4 (11.5-15.0); RED BLOOD CELL COUNT(AUTO) 4.91 MIL/uL (4.5-6.0); WHITE BLOOD COUNT (AUTO) 9.7 K/uL (4.3-11.0)
[2017-10-02 04:56] LABS: CALCIUM, SERUM 8.7 mg/dL (8.5-10.1); CREATININE 0.8 mg/dL (0.6-1.3); MAGNESIUM 1.8 mg/dL (1.8-2.4); PHOSPHORUS 4.2 mg/dL (2.5-4.9)
[2017-10-02] MEDS: Potassium Chloride 40 MEQ in IV D5/ 0.9% NACL 1,000 ML IV PRN ×2 (05:44→15:14)
--- NOTE | 2017-10-02 06:00 | NUR ---
RN CLOSING NOTES PT REMAINS STABLE OF THE MOMENT. ALL DUE MEDS GIVEN, AM CARE PROVIDED. WILL ENDORSE MAINE TO AM RN
--- NOTE | 2017-10-02 07:09 | NUR ---
RN INITIAL NOTES RECEIVED PATIENT ASLEEP IN BED, DROWSY, BUT AROUSABLE TO NAME AND TOUCH. PT IS A/O X2. ON 2L NASAL CANNULA. SR ON THE MONITOR. MYERS CATH IN PLACE. RIGHT UPPER ARM MIDLINE WITH D5NS+40MEQKCL @ 100MLS/HR, FLUSHED AND PATENT, NO S/S OF INFILTRATION/INFECTION, DRESSING CDI. BED LOW AND LOCKED, SIDERAILS UP, BED ALARM ON, BILATERAL SOFT WRIST RESTRAINTS IN PLACE FOR SAFETY. SAFETY AND ASPIRATION PRECAUTIONS IN PLACE. WILL MONITOR
--- NOTE | 2017-10-02 08:00 | NUR ---
PATIENT MORE ALERT TODAY. ABLE TO TURN SELF AND PULL SELF UP IN BED TODAY. SPEECH STILL SLOWER THAN USUAL PER FAMILY. BUT MEMORY AND UNDERSTANDING INTACT.
[2017-10-02] MEDS: Z GUARD REMEDY 2 OZ OINT TP PRN ×8 (08:17→16:08)
[2017-10-02] MEDS: GABAPENTIN 300 MG CAPSULE PO SCH ×3 (08:17→16:07)
[2017-10-02] MEDS: QUETIAPINE FUMARATE 25 MG TABLET GT SCH (08:17)
[2017-10-02] MEDS: PHENOBARBITAL SODIUM 130 MG/ML VIAL IV SCH ×2 (08:17→20:25)
--- NOTE | 2017-10-02 08:30 | NUR ---
SWALLOW EVAL BEING COMPLETED. PATIENT COMPLIANT. NO COMPLICATIONS WITH SWALLOWING. THIN LIQUIDS OK. ORDER UPDATED PER REC.
--- NOTE | 2017-10-02 09:37 | NUR ---
DR PASTOR AT BEDSIDE. NO NEW ORDERS. DR BROWN AT BEDSIDE. OK FROM NEURO TO DOWNGRADE. PATIENT PER SISTER LIU IS OBSESSIVE WITH BOWEL MOVEMENTS AFTER BEING TOLD HE HAD AN ILEUS PREVIOUSLY AND HAD STARTED USING LAXATIVES AND STOPPED EATING ALL TOGETHER IN FEAR HE WOULD . PATIENT CONTINUES TO REQUEST TO BE PUT IN A COMA AND THE VOICES TELLING HIM HE NEEDS TO . YESTERDAY PATIENT STATED HE TRIED TO AND NEEDS TO . PER SISTER 10 DAYS BEFORE ADMISSION PATIENT WAS ADMITTED TO PSYCH UNIT AT [facility] AND DISCHARGED TO A REHAB HOME FOR 4 DAYS BEFORE ADMISSION TO THIS HOSPITAL.
--- NOTE | 2017-10-02 10:13 | NUR ---
DR WHEAT AT BEDSIDE. UPDATED MD ON PATIENT CONDITION. PATIENT STATES AGAIN HE IS NOT SUICIDAL AND DOES NOT WANT TO BUT THE VOICES CONTINUE TO TELL HIM HE NEEDS TO AND HE IS DIEING. PER MD PLEASE CALL CRISIS TEAM TO EVALUATE PATIENT ONCE MEDICALLY CLEARED BY PRIMARY.
--- NOTE | 2017-10-02 12:45 | NUR ---
JUAN CARLOS AT BEDSIDE. UPDATED ON PATIENT CONDITION, LABS, VS. PER MD OK TO DOWNGRADE TO TELE.
--- NOTE | 2017-10-02 14:00 | NUR ---
CALLED PHARMACY FOR MORE Z GUARD. PATIENT CONTINUES TO YELL TO BE CHANGED EVERY TIME HE PASSES GAS. EDUCATED PATIENT ON SKIN CARE AND PROTECTION. EDUCATED WHEN HE IS CLEAN I WILL APPLY MORE Z GUARD BUT NOT "SCRUB" HIS BUTT WITH EACH PASSING OF GAS... PER SISTER LUIS PATIENT HAS BEEN "OBSESSIVE" OVER HIS BOWELS AND STOOL PASSING PRIOR TO ADMISSION.
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
--- NOTE | 2017-10-02 14:54 | NUR ---
MOTHER AT BEDSIDE. STATED PATIENT TAKES VIT B 12 INJECTIONS DAILY AT HOME. NOTIFIED CHERYL. VEE TO RESUME. IM 1000MG DAILY
--- NOTE | 2017-10-02 15:32 | NUR ---
MOTHER AT BEDSIDE COMPLAINING THAT WE DO NOT HAVE BABY WIPES. NOTIFIED MOTHER THAT I HAVE CHANGED PATIENT'S DIAPER 8 TIMES TODAY AND EACH TIME APPLIED Z GUARD. WITH EACH CHANGE PATIENT HAD JUST FARTED AND LESS THAN 5 ML HAD COME OUT WITH EACH CHANGE. PATIENT CHANGED 15 MINUTES PRIOR TO MOTHERS ARRIVAL AND MOTHER DECIDED TO CHANGE PATIENT AGAIN AND COMES TO FRONT DEST ARGUING THAT WE ARE NOT CLEANING HIM AND I EXPLAINED TO MOTHER THE ABOVE. AND IF WE CLEAN HIM AND WIPE EVERY 15-30 MINUTES PATIENT BOTTOM WILL BECOME MORE EXCORIATED AND IRRITATED. OR ASSISTANT IRENA AT BEDSIDE SPEAKING WITH MOTHER
--- NOTE | 2017-10-02 15:42 | NUR ---
PATIENT CONTINUES TO YELL OUT "I NEED MY NURSE" WHILE MOTHER AT BEDSIDE EVERY 10-15 MINUTES. MOTHER CONTINUES TO COME SEEK ME OUT OF OTHER PATIENTS ROOMS WHILE I AM SPEAKING WITH PATIENT'S (EDUCATED MOTHER ON HIPPA AND SHE MAY NOT DO THIS FOR PRIVACY REGULATIONS) EACH TIME ASKING PATIENT WHAT HE NEEDS HE CONTINUES TO REPEAT "I CANT POOP, GET IT OUT. WHEN AM I LEAVING?" I AM SITTING OUTSIDE OF ROOM NOW PATIENT AND MOTHER CONTINUE TO CALL ME INTO ROOM FOR REPETITIVE QUESTIONS. PATIENT VS STABLE.
[2017-10-02] MEDS: HYDROCODONE/APAP 5/325MG 1 EACH TABLET PO PRN (15:56)
[2017-10-02] MEDS: QUETIAPINE FUMARATE 25 MG TABLET PO SCH (16:07)
--- NOTE | 2017-10-02 18:30 | NUR ---
PATIENT TRANSFERRED TO TELE REPORT GIVEN TO MAYKEL PARDO. PATIENT STABLE. ALERT AWAKE. ROOM AIR STABLE. FOELY CATH IN PLACE PATENT DRAINING. IVF PER ORDER. IV SITE CLEAN DRY INTACT. ALL DUE MEDS GIVEN AND ALL NEEDS MET. SAFETY, SKIN, AND ASPIRATION, SEIZURE PRECAUTIONS IN PLACE.
--- NOTE | 2017-10-02 18:35 | NUR ---
RN NOTES PT WAS BROUGHT TO THE FLOOR FROM ICU IN STABLE CONDITION, ACCOMPANIED BY FAMILY MEMBERS. PT IS AWAKE AND ALERT. PT ON RA, RESPIRATIONS ARE EVEN AND UNLABORED. FITO MIDLINE INTACT AND RUNNING D5 NS + 40 MEQ KCL @ 100ML/HR. TELE MONITOR LEADS IN PLACE, SHOWING SR 89. NO SIGNS OF DISTRESS NOTED. SAFETY MEASURES ARE IN PLACE, CALL LIGHT IS IN REACH. WILL ENDORSE TO AED TRAINER RN FOR CONTINUITY OF CARE.
--- NOTE | 2017-10-02 20:00 | NUR ---
TELE/RN NOTES PATIENT IN BED, REPORT RECEIVED FROM AM RN FOR MAINE. PATIENT TRANSFERED FROM ICU FOR MAINE, PATIENT ALERT, ORIENTED X3, FAMILY INVOLVE, ON SEIZURE, ASPIRATION PRECAUTION MONITORING, ABLE TO VERBALIZE NEEDS, REQUIRE FRFEQUENT MONITORING AND REORIENTATION. RESPIRATIONS EVEN AND UNLABORED, DR MCGREGOR INFORMED MADE AWARE REGARDING FAMILY CONCERN WITH PATIENT CONDITION AND WITH F/U PSYCH ATTENDING TO PATIENT, DISCUSSED NEED BY FAMILY AND REQUESTING NEUROLOGY F/U. FOR NMS. CALL LIGHTS WITHION REACH, BED IN LOCK POSITION,WILL MONITOR.
[2017-10-02] MEDS: ENOXAPARIN SODIUM 40 MG/0.4 ML DISP.SYRIN SQ SCH (20:26)
[2017-10-02] MEDS ORDERED: QUETIAPINE FUMARATE 100 MG TABLET PO SCH (22:00)
[2017-10-03] VITALS: BP 110/69
[2017-10-03] MEDS: Potassium Chloride 40 MEQ in IV D5/ 0.9% NACL 1,000 ML IV PRN (02:20)
[2017-10-03 04:00] VITALS: BP 112/64
--- NOTE | 2017-10-03 06:28 | NUR ---
315-1 TELE/RN NOTES PATIENT IN BED, ABLE TO SLEEP DURING THE NIGHT, DISCUSSED CHARY OF CARE WITH FAMILY, FOR PT EVAL FOR AM, WILL MONITOR, PAIN MANAGEMNT, SKIN INTACT AND WARM,RESPIRATIONS EVEN AND UNLABORED, WILL ENDORSE TO AM RN FOR MAINE.
[2017-10-03 06:46] LABS: BASOPHILS % (AUTO) 0.5 % (0.0-2.0); EOSINOPHILS % (AUTO) 3.2 % (0.0-6.0); HEMATOCRIT 42 % (39-51); HEMOGLOBIN 13.7 g/dL (13.5-17.5); LYMPHOCYTES # (AUTO) 2.4 /CMM (0.8-4.8); LYMPHOCYTES % (AUTO) 28.7 % (20.0-44.0); MEAN CORPUSCULAR HEMOGLOBIN 27 PG (26.0-33.0); MEAN CORPUSCULAR HGB CONC 33 g/dl (31.0-36.0); MEAN CORPUSCULAR VOLUME 84 fL (80-96); MONOCYTES # (AUTO) 0.9 /CMM (0.1-1.30); MONOCYTES % (AUTO) 11.4 % (2.0-12.0); NEUTROPHILS # (AUTO) 4.7 /CMM (1.8-8.9); NEUTROPHILS % (AUTO) 56.2 % (43.0-81.0); PLATELET COUNT (AUTO) 442 /CMM (150-450); RDW COEFFICIENT OF VARIATION 13.7 (11.5-15.0); WHITE BLOOD COUNT (AUTO) 8.3 K/uL (4.3-11.0)
--- NOTE | 2017-10-03 07:00 | NUR ---
TELE/RN NOTES PATIENT VERBALIZED AND STATED " I AM DYING, i WANT TO KILL MYSELF. " tHEN STARTED TO LAUGH AND WATCH TV FOR DISTRACTION. PATIENT WAS ASKED FOR ANY PLAN OF HARMING HIMSELF. HE DID NOT ANSWER. REPORTED TO CHARGE NURSE FOR PATIENT EXHIBITING AND RISK FOR SELF HARM. ENDORSED TO AM RN AND MADE AWARE TO HAVE SITTER TO WATCH HIM.
[2017-10-03 07:08] LABS: CALCIUM, SERUM 9.1 mg/dL (8.5-10.1); CREATININE 0.8 mg/dL (0.6-1.3); MAGNESIUM 1.8 mg/dL (1.8-2.4); PHOSPHORUS 5.1 mg/dL (2.5-4.9); POTASSIUM 4.1 mmol/L (3.5-5.1)
--- NOTE | 2017-10-03 07:15 | NUR ---
RN OPENING NOTES RECEIVED PATIENT IN BED RESTING. NO ACUTE DISTRESS, NO SOB NOTED. ASKING FOR PAIN MEDICATIONS, WILL ADMINISTERED PAIN MEDS ORDERED. IV SITE INTACT AND PATENT. KEPT PATIENT SAFE AND COMFORTABLE. NO SI NOTED. SITTER AT BEDSIDE FOR SAFETY. SEIZURE PRECAUTIONS INITIATED. BED IN LOW/LOCKED POSITION. PADDED SIDERAILS. CALL LIGHT IN REACH. WILL CONTINUE TO MONITOR ACCORDINGLY.
[2017-10-03] MEDS: HYDROCODONE/APAP 5/325MG 1 EACH TABLET PO PRN (07:57)
[2017-10-03 08:00] VITALS: BP 133/78
[2017-10-03] MEDS ORDERED: CYANOCOBALAMIN 1,000 MCG/ML VIAL IM SCH (09:00)
--- NOTE | 2017-10-03 09:30 | NUR ---
RN NOTES DR BROWN ON BEDSIDE TALKING TO THE PATIENT. PER DR BROWN, REMOVED MYERS.
--- NOTE | 2017-10-03 09:35 | NUR ---
RN NOTES DISCONTINUED MYERS CATHETER PER MD ORDERED. PATIENT TOLERATED WELL. NO COMPLICATIONS.
[2017-10-03] MEDS: PHENOBARBITAL SODIUM 130 MG/ML VIAL IV SCH (09:44)
[2017-10-03] MEDS: QUETIAPINE FUMARATE 25 MG TABLET PO SCH (09:45)
[2017-10-03] MEDS: GABAPENTIN 300 MG CAPSULE PO SCH ×2 (09:45→14:25)
--- NOTE | 2017-10-03 10:00 | NUR ---
RN NOTES PATIENT WALKED WITH PHYSICAL THERAPY.
[2017-10-03] MEDS ORDERED: QUET100T PO (11:22)
[2017-10-03] MEDS ORDERED: QUET25TA PO (11:22)
[2017-10-03] MEDS ORDERED: PHEN60TA11 PO (11:36)
[2017-10-03 12:00] VITALS: BP 111/68
--- NOTE | 2017-10-03 15:00 | NUR ---
RN NOTES PATIENT EVALUATED BY CRISIS TEAM. PATIENT IS CLEARED FOR DISCHARGE.
--- NOTE | 2017-10-03 15:30 | NUR ---
PATIENT REFUSED SKIN PHOTO FOR DISCHARGE.
--- NOTE | 2017-10-03 15:45 | NUR ---
RN DISCHARGED NOTES DISCHARGED PATIENT IN STABLE CONDITION, PICKED UP BY FATHER,EDNA. ACCOMPANIED BY BINU ALMEIDA TO THE LOBBY. DISCHARGE PAPERWORK AND PRESCRIPTIONS GIVEN TO PATIENT'S FATHER, DISCHARGE INSTRUCTIONS GIVEN, VERBALIZED UNDERSTANDING. REMOVED MIDLINE, APPLIED PRESSURE, NO BLEEDING, NO COMPLICATIONS. NO BELONGINGS NOTED. PANTS AND SHIRT PROVIDED BY THE HOSPITAL FOR DISCHARGE.
== END 2017-10-03 15:45 | disposition home or self-care (01) | DRG 917 ==
LOC: ER 21:28 → EDBD 09-27 01:39 → ICU 09-27 01:39 → TELE 10-02 18:24 → MED 10-03 09:10
PROVIDERS: ADMIT Nurse Practitioner Acute Care; ATTEND Nurse Practitioner Acute Care
PROC: 5A1945Z Respiratory Ventilation, 24-96 Consecutive Hours (ICD-10-PCS; principal; 2017-09-26)
PROC: 0BH17EZ Insertion of Endotracheal Airway into Trachea, Via Natural or Artificial Opening (ICD-10-PCS; 2017-09-26)
PROC: 05H533Z Insertion of Infusion Device into Right Subclavian Vein, Percutaneous Approach (ICD-10-PCS; 2017-09-28)
PROC: B546ZZA Ultrasonography of Right Subclavian Vein, Guidance (ICD-10-PCS; 2017-09-28)
DX: T50.901A Poisoning by unspecified drugs, medicaments and biological substances, accidental (unintentional), initial encounter (principal); A41.9 Sepsis, unspecified organism; J69.0 Pneumonitis due to inhalation of food and vomit; J96.02 Acute respiratory failure with hypercapnia; G92 Toxic encephalopathy; R65.20 Severe sepsis without septic shock; E22.2 Syndrome of inappropriate secretion of antidiuretic hormone; E87.0 Hyperosmolality and hypernatremia; E87.4 Mixed disorder of acid-base balance; R45.851 Suicidal ideations; K56.7 Ileus, unspecified; E46 Unspecified protein-calorie malnutrition; E86.0 Dehydration; F29 Unspecified psychosis not due to a substance or known physiological condition; Z79.899 Other long term (current) drug therapy; F19.10 Other psychoactive substance abuse, uncomplicated; G40.901 Epilepsy, unspecified, not intractable, with status epilepticus; F25.9 Schizoaffective disorder, unspecified; E87.70 Fluid overload, unspecified; E87.6 Hypokalemia; Z82.0 Family history of epilepsy and other diseases of the nervous system; Z81.3 Family history of other psychoactive substance abuse and dependence; Z72.0 Tobacco use; T50.995A Adverse effect of other drugs, medicaments and biological substances, initial encounter; Y92.009 Unspecified place in unspecified non-institutional (private) residence as the place of occurrence of the external cause; F55.2 Abuse of laxatives
CPT/HCPCS: 31720; 36415; 36600; 70450-TC; 71045-TC; 72125-TC; 74018; 80048-TC; 80053-TC; 80061-TC; 80074; 80076-TC; 80184-TC; 80305; 81000-TC; 82803-TC; 83605-TC; 83735-TC; 83935-TC; 84100-TC; 84295-TC; 84300-TC; 84443-TC; 84484-TC; 84550-TC; 85025-TC; 85730-TC; 87040-TC; 87070-TC; 87081-TC; 87086-TC; 92611-TC; 94002-TC; 94003-TC; 94640-TC; 94762-TC; 95819-TC; 99082-TC; A4606; A6253; G0480; J1650; J1953; J2060; J2543; J2560; J3420; J3475; J3480; J3490; J7030; J7042; J7060; Z7610